=== PATIENT | female | born 1980 | race Caucasian/White ===

== ENCOUNTER 2017-09-16 18:55 | Emergency (ER) | payer MEDICAID ==
[~2017-09-16 18:55] MED LIST: COLA100C5 PO; IBUP1TAB7 PO; MIRA3350 PO; NORC5TAB PO
[2017-09-16 18:58] VITALS: BP 131/72; PULSE 71; RESP 18; TEMP 98; O2SAT 100
--- NOTE | 2017-09-16 19:12 | PD ---
HPI Chief Complaint: Dizziness Time Seen by Provider: 19:05 Travel History International Travel<30 days: No Contact w/Intl Traveler<30days: No Traveled to known affect area: No History of Present Illness HPI She was examined in the presence of a female nurse. 37-year-old female presents for evaluation. For one month she has had vertigo sensation, intermittent chest pain and paresthesias in the left arm. The vertigo sensation is worse with head movement such as when she is looking down or standing up. She describes the chest pain as a "pinching sensation," which comes and goes but seems to be worse with movement and deep inspiration and when she is lying down. Associated dyspnea as well as intermittent nausea. Denies vomiting, cough, congestion, sore throat, ear pain, recent travel, fevers or chills, abdominal pain. She is currently on her menstrual period. She reports a 5 months ago. She does report a history of hypothyroidism 5 years ago. Denies any other significant past medical history. No other complaints. PFSH Past Medical History Diminished Hearing: No ?: LMP: CURRENT Past Surgical History Abdominal Surgery: Yes (CYST REMOVAL, UNDER SKIN) Gynecologic Surgery: Yes ( X 2) Tonsillectomy: Yes Social History Alcohol Use: No Tobacco Use: Yes Substance Use: No Allergies-Medications (Allergen,Severity, Reaction): Coded Allergies: No Known Allergies (Unverified Adverse Reaction, Unknown, 09/16/17) Reported Meds & Prescriptions Reported Meds & Active Scripts Active Meclizine (Meclizine HCl) 25 Mg Tab 25 Mg PO TID PRN Review of Systems Except as stated in HPI: all other systems reviewed are Neg Physical Exam Narrative GENERAL: Well-developed well-nourished female in no acute distress SKIN: Warm and dry. HEAD: Atraumatic. Normocephalic. EYES: Pupils equal and round and active to light extraocular muscles are intact no nystagmus. No scleral icterus. No injection or drainage. ENT: No nasal bleeding or discharge. Mucous membranes pink and moist. NECK: Trachea midline. No JVD. CARDIOVASCULAR: Regular rate and rhythm. No murmur appreciated. RESPIRATORY: No accessory muscle use. Clear to auscultation. Breath sounds equal bilaterally. GASTROINTESTINAL: Abdomen soft, non-tender, nondistended. Hepatic and splenic margins not palpable. MUSCULOSKELETAL: No obvious deformities. No clubbing. No cyanosis. No edema. NEUROLOGICAL: Awake and alert. No obvious cranial nerve deficits. Motor grossly within normal limits. Normal speech. PSYCHIATRIC: Appropriate mood and affect; insight and judgment normal. Data Data Last Documented VS Vital Signs Date Time Temp Pulse Resp B/P (MAP) Pulse Ox O2 Delivery O2 Flow Rate FiO2 09/16/17 19:08 Room Air 09/16/17 18:58 98.0 71 18 131/72 (91) 100 Orders Orders Electrocardiogram (09/16/17 19:18) Basic Metabolic Panel (Bmp) (09/16/17 19:18) Ckmb (Isoenzyme) Profile (09/16/17 19:18) Complete Blood Count With Diff (09/16/17 19:18) D-Dimer (09/16/17 19:18) Troponin I (09/16/17 19:18) Chest, Single Ap (09/16/17 19:18) Ecg Monitoring (09/16/17 19:18) Iv Access Insert/Monitor (09/16/17 19:18) Ketorolac Inj (Toradol Inj) (09/16/17 19:30) Ed Urine Pregnancytest Poc (09/16/17 19:18) Meclizine (Antivert) (09/16/17 19:30) Ondansetron Inj (Zofran Inj) (09/16/17 19:30) Sodium Chlor 0.9% 1000 Ml Inj (Ns 1000 M (09/16/17 19:18) Magnesium (Mg) (09/16/17 19:18) Thyroid Stimulating Hormone (09/16/17 20:00) Labs Laboratory Tests Test 09/16/17 20:00 White Blood Count 8.6 TH/MM3 Red Blood Count 4.35 MIL/MM3 Hemoglobin 9.7 GM/DL Hematocrit 31.3 % Mean Corpuscular Volume 72.0 FL Mean Corpuscular Hemoglobin 22.3 PG Mean Corpuscular Hemoglobin Concent 31.0 % Red Cell Distribution Width 19.0 % Platelet Count 306 TH/MM3 Mean Platelet Volume 8.5 FL Neutrophils (%) (Auto) 59.6 % Lymphocytes (%) (Auto) 31.2 % Monocytes (%) (Auto) 6.9 % Eosinophils (%) (Auto) 1.6 % Basophils (%) (Auto) 0.7 % Neutrophils # (Auto) 5.1 TH/MM3 Lymphocytes # (Auto) 2.7 TH/MM3 Monocytes # (Auto) 0.6 TH/MM3 Eosinophils # (Auto) 0.1 TH/MM3 Basophils # (Auto) 0.1 TH/MM3 CBC Comment DIFF FINAL Differential Comment D-Dimer Quantitative (PE/DVT) 0.24 MG/L FEU Blood Urea Nitrogen 19 MG/DL Creatinine 0.65 MG/DL Random Glucose 98 MG/DL Calcium Level 8.9 MG/DL Magnesium Level 2.1 MG/DL Sodium Level 139 MEQ/L Potassium Level 3.9 MEQ/L Chloride Level 107 MEQ/L Carbon Dioxide Level 24.5 MEQ/L Anion Gap 8 MEQ/L Estimat Glomerular Filtration Rate 103 ML/MIN Total Creatine Kinase 88 U/L Troponin I LESS THAN 0.02 NG/ML Thyroid Stimulating Hormone 3rd Gen 2.930 uIU/ML MDM Medical Decision Making Medical Screen Exam Complete: Yes Emergency Medical Condition: Yes Medical Record Reviewed: Yes Interpretation(s) CONCLUSION: 1. No acute cardiopulmonary disease. 2. Scoliosis, possible congenital vertebral body anomaly and degenerative changes of the thoracic spine are noted. Differential Diagnosis BPPV, central vertigo, labyrinthitis, electrolyte abnormality, dehydration, pulmonary embolism, pleurisy, costochondritis Narrative Course Physical examination is reassuring with no focal neurologic deficits or significant findings. Her vital signs are stable. The patient was placed on ECG monitoring and pulse oximetry. A 12-lead EKG was obtained. Plan is for basic lab work, chest x-ray. The patient will be given IV fluids, Zofran, meclizine, Toradol. The patient's lab work is notable for a hemoglobin of 9.7 with an MCV of 72, most likely iron deficiency anemia. She does report that she has menstrual periods prolonged duration. She reports that she has a history of anemia originally diagnosed when she was 19 years old. She does not take iron supplements. It is recommended that she start taking iron supplements on a regular basis and to follow up with primary care physician. On reexamination she feels significantly improved with the medications that were administered. She'll be discharged with a short course of meclizine. Procedures EKG Prior to Arrival: Yes Diagnosis Primary Impression: Anemia Additional Impressions: Vertigo Chest pain Additional Instructions: Medication as needed for vertigo sensation. Do not drive or drink alcohol when taking this medication. Stay well hydrated well-nourished. Follow-up closely with primary care physician and return for any emergent medical conditions. Med/Other Pt SpecificInfo: Prescription(s) given Scripts Meclizine (Meclizine) 25 Mg Tab 25 MG PO TID Y for VERTIGO, #20 TAB 0 Refills Prov: Buzz Grigsby MD 09/16/17 Disposition: 01 DISCHARGE HOME Condition: Stable Ace Escobar Sep 16, 2017 19:12
[2017-09-16] MEDS ORDERED: SODIUM CHLOR 0.9% 1000 ML INJ 1,000 ML IV ONE (19:18)
[2017-09-16] MEDS ORDERED: MECLIZINE HCL 25 MG TAB PO ONE (19:30)
[2017-09-16] MEDS ORDERED: ONDANSETRON HCL 4 MG/2 ML VIAL IVP ONE (19:30)
[2017-09-16] MEDS ORDERED: KETOROLAC TROMETHAMINE 30 MG/ML (IVP) VIAL IV PUSH ONE (19:30)
[2017-09-16 20:18] LABS: AUTOMATED NEUTROPHIL # 5.1 TH/MM3 (1.8-7.7); BASOPHIL # 0.1 TH/MM3 (0-0.2); BASOPHIL % 0.7 % (0.0-2.0); EOSINOPHIL # 0.1 TH/MM3 (0-0.4); EOSINOPHIL % 1.6 % (0.0-4.0); HEMATOCRIT 31.3 % (35.0-46.0); HEMO FLAGS DIFF FINAL; LYMPH % 31.2 % (9.0-44.0); LYMPHOCYTE # 2.7 TH/MM3 (1.0-4.8); MEAN CORPUSCULAR HEMOGLOBIN 22.3 PG (27.0-34.0); MONO % 6.9 % (0.0-8.0); NEUT % 59.6 % (16.0-70.0); PLATELET COUNT 306 TH/MM3 (150-450); RED BLOOD COUNT 4.35 MIL/MM3 (4.00-5.30); WHITE BLOOD COUNT 8.6 TH/MM3 (4.0-11.0)
[2017-09-16 20:35] VITALS: BP 116/68; PULSE 62; RESP 16; O2SAT 100
[2017-09-16 20:39] LABS: ANION GAP 8 MEQ/L (5-15); BICARBONATE 24.5 MEQ/L (21.0-32.0); BLOOD UREA NITROGEN 19 MG/DL (7-18); CHLORIDE 107 MEQ/L (98-107); GLOMERULAR FILTRATION RATE 103 ML/MIN (>89); MAGNESIUM 2.1 MG/DL (1.5-2.5); POTASSIUM 3.9 MEQ/L (3.5-5.1); SODIUM (NA) 139 MEQ/L (136-145)
[2017-09-16 20:52] LABS: CREATINE KINASE 88 U/L (26-192)
[2017-09-16] MEDS ORDERED: MECL-62 PO (21:14)
--- NOTE | 2017-09-16 21:20 | RADRPT ---
EXAM DATE/TIME: 09/16/2017 19:41 [facility] COMPARISON: No previous studies available for comparison. INDICATIONS : Chest pain, shortness of breath. MEDICAL HISTORY : None. SURGICAL HISTORY : None. ENCOUNTER: Initial ACUITY: 1 day PAIN SCORE: 0/10 LOCATION: Bilateral chest FINDINGS: A single view of the chest demonstrates the lungs to be symmetrically aerated without evidence of mas s, infiltrate or effusion. The cardiomediastinal contours are unremarkable. Scoliosis, possible con genital vertebral body anomaly and degenerative changes of the thoracic spine are noted. CONCLUSION: 1. No acute cardiopulmonary disease. 2. Scoliosis, possible congenital vertebral body anomaly and degenerative changes of the thoracic spi ne are noted. Sudheer Swartz MD on September 16, 2017 at 21:17 Board Certified Radiologist. This report was verified electronically.
[2017-09-16 21:30] VITALS: BP 104/64; PULSE 58; RESP 15; O2SAT 100
[2017-09-16 21:56] VITALS: BP 110/64
--- NOTE | 2017-09-16 22:45 | EKG ---
Date Performed: 09/16/2017 Time Performed: 20:43:49 PTAGE: 37 years EKG: SINUS BRADYCARDIA INCOMPLETE RIGHT BUNDLE BRANCH BLOCK BORDERLINE ECG NO PREVIOUS TRACING DOCTOR: Genaro Downey Interpretating Date/Time 09/16/2017 22:44:00
== END 2017-09-16 22:07 | disposition home or self-care (01) ==
LOC: NEPD 18:55
DX: R42 Dizziness and giddiness (principal); R07.9 Chest pain, unspecified; D64.9 Anemia, unspecified; M41.9 Scoliosis, unspecified; Z72.0 Tobacco use
CPT/HCPCS: 71010; 80048; 82550; 83735; 84443; 84484; 84703; 85025; 85379; 93005; 96374; 96375; 99285; J1885; J2405; J7030

== ENCOUNTER 2017-11-24 12:58 | Emergency (ER) | payer MEDICAID ==
[~2017-11-24 12:58] MED LIST changes: -COLA100C5 PO; -IBUP1TAB7 PO; +MECL-62 PO; -MIRA3350 PO; -NORC5TAB PO
[2017-11-24 13:00] VITALS: BP 126/84; PULSE 56; RESP 16; TEMP 98; O2SAT 99
--- NOTE | 2017-11-24 13:29 | PD ---
HPI Chief Complaint: Respiratory Symptoms Time Seen by Provider: 13:11 Travel History International Travel<30 days: No Contact w/Intl Traveler<30days: No Traveled to known affect area: No History of Present Illness HPI The patient is a 37-year-old female who presents emergency department for cough and wheezing of 2 days' duration. The patient states she had cough and cold symptoms 2 weeks ago, the improved, however, 2 days ago she developed cough with wheezing. She now notes expiratory wheeze with "rattling" in the lungs. She does complain of mild chest tightness and discomfort, denies any history of asthma, bronchitis, pneumonia, cardiomyopathy, congestive heart failure, pulmonary most and, or DVT. She does complain of mild shortness of breath and states that she becomes dizzy when she is coughing. Symptoms are moderate, there are no current alleviating or exacerbating factors. PFSH Past Medical History Cardiovascular Problems: Yes (venous insuffiency 2 yrs ago ) Diminished Hearing: No ?: Not Para: 2 Past Surgical History Abdominal Surgery: Yes (CYST REMOVAL, UNDER SKIN) Section: Yes Gynecologic Surgery: Yes ( X 2) Tonsillectomy: Yes Social History Alcohol Use: No Tobacco Use: No Substance Use: No Allergies-Medications (Allergen,Severity, Reaction): Coded Allergies: No Known Allergies (Unverified Adverse Reaction, Unknown, 09/16/17) Reported Meds & Prescriptions Reported Meds & Active Scripts Active No Active Prescriptions or Reported Medications Review of Systems Except as stated in HPI: all other systems reviewed are Neg General / Constitutional: No: Fever HENT: No: Congestion Cardiovascular: Positive: Chest Pain or Discomfort Respiratory: Positive: Cough, Shortness of Breath, Wheezing Gastrointestinal: No: Nausea, Vomiting, Abdominal Pain Musculoskeletal: No: Edema Neurologic: Positive: Dizziness Physical Exam Narrative GENERAL: Awake, alert, pleasant 37-year-old female who appears her stated age and is in no acute respiratory distress. SKIN: Focused skin assessment warm/dry. HEAD: Atraumatic. Normocephalic. EYES: Pupils equal and round. No scleral icterus. No injection or drainage. ENT: No nasal bleeding or discharge. Mucous membranes pink and moist. NECK: Trachea midline. No JVD. CARDIOVASCULAR: Regular rate and rhythm. No murmur appreciated. RESPIRATORY: No accessory muscle use. Prolonged expiratory phase with diffuse wheezing. MUSCULOSKELETAL: No obvious deformities. No clubbing. No cyanosis. No edema. NEUROLOGICAL: Awake and alert. No obvious cranial nerve deficits. Motor grossly within normal limits. Normal speech. PSYCHIATRIC: Appropriate mood and affect; insight and judgment normal. Data Data Last Documented VS Vital Signs Date Time Temp Pulse Resp B/P (MAP) Pulse Ox O2 Delivery O2 Flow Rate FiO2 11/24/17 13:00 98.0 56 16 126/84 (98) 99 Orders Orders Oximetry (11/24/17 13:17) Albuterol-Ipratropium Neb (Duoneb Neb) (11/24/17 13:30) Prednisone (Deltasone) (11/24/17 13:30) Chest, Single Ap (11/24/17 ) MDM Medical Decision Making Medical Screen Exam Complete: Yes Emergency Medical Condition: Yes Medical Record Reviewed: Yes Interpretation(s) Chest x-ray reveals no acute cardiopulmonary disease Differential Diagnosis Differential diagnosis includes bronchitis, pneumonia, congestive heart failure , pleural effusion, pulmonary edema, cardiomyopathy, congestive heart failure, pulmonary embolism. Narrative Course A chest x-ray was obtained. The patient was administered prednisone orally and duo nebs. Chest x-rays unremarkable. Patient was reevaluated at 2:55 PM, she still has wheezing, but symptoms have significantly improved. Vitals are stable. The patient we discharged him a prednisone, albuterol nebulizers, and albuterol inhaler. She is advised to return if symptoms worsen or progress. Follow-up with her primary physician. Diagnosis Primary Impression: Bronchitis Patient Instructions: General Instructions Additional Instructions: Please provide the patient copy of her x-ray results at discharge. Medications as directed. Follow-up with her primary physician. Return if symptoms worsen or progress. Med/Other Pt SpecificInfo: Prescription(s) given Scripts Albuterol Neb (Albuterol Neb) 2.5 Mg/3 Ml Neb 2.5 MG NEB Q4HR NEB Y for SHORTNESS OF BREATH, #60 NEBULE 0 Refills Prov: Manuel Peñaloza MD 11/24/17 Albuterol 8.5 GM Inh (Proair Hfa 8.5 GM Inh) 90 Mcg/Act Aer 2 PUFF INH Q6H Y for SHORTNESS OF BREATH, #1 INHALER 0 Refills 108 mcg/actuation Prov: Manuel Peñaloza MD 11/24/17 Prednisone (Prednisone) 20 Mg Tab 40 MG PO DIRECTED for 4 Days, TAB 0 Refills Prov: Manuel Peñaloza MD 11/24/17 Azithromycin (Zithromax Z-Morgan) 250 Mg Dspk 250 MG PO DIRECTED for Infection, #1 DSPK 0 Refills 500 MG (2 tabs) day 1, then 1 tab days 2-5. Prov: Manuel Peñaloza MD 11/24/17 Disposition: 01 DISCHARGE HOME Condition: Stable Manuel Peñaloza MD Nov 24, 2017 13:29
[2017-11-24] MEDS ORDERED: predniSONE 20 MG TAB PO ONE (13:30)
[2017-11-24] MEDS: RESP: ALBUTEROL 2.5 MG/IPRATROPIUM 0.5 MG NEB (SCH) INH ×2 (13:44→13:45)
--- NOTE | 2017-11-24 14:36 | RADRPT ---
EXAM DATE/TIME: 11/24/2017 13:59 [facility] COMPARISON: CHEST SINGLE AP, September 16, 2017, 19:41. INDICATIONS : Wheezing and short of breath, no chest pain at this time MEDICAL HISTORY : scoliosis SURGICAL HISTORY : None. ENCOUNTER: Initial ACUITY: 2 days PAIN SCORE: 0/10 LOCATION: Bilateral chest FINDINGS: A single view of the chest demonstrates the lungs to be symmetrically aerated without evidence of mas s, infiltrate or effusion. The cardiomediastinal contours are unremarkable. Levoscoliosis centered i n the mid thoracic spine. CONCLUSION: 1. No acute cardiopulmonary disease. Levi Hylton MD on November 24, 2017 at 14:33 Board Certified Radiologist. This report was verified electronically.
[2017-11-24] MEDS ORDERED: PRED20 PO (15:01)
[2017-11-24] MEDS ORDERED: ALBUAER3 INH (15:01)
[2017-11-24] MEDS ORDERED: ZITHTAB PO (15:01)
[2017-11-24] MEDS ORDERED: ALBU0.08 NEB (15:01)
== END 2017-11-24 15:10 | disposition home or self-care (01) ==
LOC: NEPD 12:58
DX: J40 Bronchitis, not specified as acute or chronic (principal); M41.9 Scoliosis, unspecified
CPT/HCPCS: 71045; 94640; 94664; 99283; J7512